=== PATIENT | female | born 1930 | race Caucasian/White ===

== ENCOUNTER 2017-07-06 10:32 | Emergency (ER) | payer OTHER, MEDICAID ==
[~2017-07-06] VITALS: Ht 160 cm; Wt 68.0 kg
--- NOTE | ~2017-07-06 | EKG ---
[place] [address] 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 BAE : 1930 Requested By: Robbie Dave Order Number: [id number] MD: Celestino Villar Measurements Intervals [place] Rate: 57 P: 5 AK: 161 QRS: -42 QRSD: 114 T: 104 QT: 467 QTc: 455 Interpretive Statements Sinus rhythm Atrial premature complex Left anterior fascicular block Abnormal R-wave progression, late transition Abnormal T, consider ischemia, anterior leads Compared to ECG 04/08/2016 10:06:11 Sinus bradycardia no longer present Left-axis deviation no longer present T-wave abnormality still present Electronically Signed On 07-06-2017 12:27:06 GROCERY CLERK CHECKING by Celestino Villar [email or web address] <ELECTRONICALLY SIGNED> By: Celestino Villar MD 07/06/17 1227 1049 1049 Celestino Villar MD /EPI
[~2017-07-06 10:32] MED LIST: ANUSOL1 EACH RC; AZITHROMYCIN 2250 MG PO; B12INJ IM; BISACODYL SUPP10 MG RE; DEXILANT60 MG PO; KEFLEX500 MG PO; LACTULOSE20 GM/30 M PO; LEVAQUIN 500 M500 MG PO; LISINOPRIL10 MG PO; MECLIZINE HCL12.5 MG PO; PREDNISONE 5 MG5 M1 PO; TUMS300 MG PO; VALIUM2 MG PO; ZOFRAN4 MG PO; [UNRECOGNIZED DRUG - OTHER]
[2017-07-06 10:57] LABS: ABSOLUTE NEUTROPHILS 4.6 thou/uL (1.4-8.2); BASOPHILS 0.8 % (0.0-2.0); EOSINOPHILS 0.4 % (0.0-3.0); HEMATOCRIT 39.3 % (37.0-47.0); HEMOGLOBIN 13.9 gm/dL (12.0-15.0); LYMPHOCYTES 18.2 % (24.0-44.0); MCH 30.2 pg (26.0-34.0); MCHC 35.3 g/dL (28.0-37.0); MCV 85.5 fL (80.0-100.0); MONOCYTES 7.3 % (1.0-8.0); PLATELET COUNT 198 thou/uL (150-400); POLYS 73.3 % (36.0-66.0); RDW 13.7 % (10.5-14.5); WBC 6.3 thou/uL (4.0-11.0)
[2017-07-06 11:05] LABS: ANION GAP 8 mmol/L (7-16); BUN 26 mg/dL (7-18); CHLORIDE 94 mmol/L (98-107); CO2 25 mmol/L (21-32); CREATININE 1.4 mg/dL (0.6-1.0); GLUCOSE 116 mg/dL (74-106); POTASSIUM 3.3 mmol/L (3.5-5.1); SODIUM 127 mmol/L (136-145)
[2017-07-06 11:14] LABS: SGOT 48 U/L (15-37); SGPT 28 U/L (30-65); TOTAL BILIRUBIN 0.5 mg/dL (<0.1-1.0); TOTAL PROTEIN 6.5 g/dL (6.4-8.2); TROPONIN-I < 0.04 ng/mL (<0.06)
[2017-07-06] MEDS ORDERED: OSELB75 PO (14:01)
[2017-07-06 18:11] VITALS: BP 136/78
== END 2017-07-06 16:30 | disposition home or self-care (01) ==
LOC: ER 10:32
PROVIDERS: Physician Assistant
DX: E86.0 Dehydration (principal); J11.1 Influenza due to unidentified influenza virus with other respiratory manifestations; R10.13 Epigastric pain; R00.1 Bradycardia, unspecified; I12.9 Hypertensive chronic kidney disease with stage 1 through stage 4 chronic kidney disease, or unspecified chronic kidney disease; N18.9 Chronic kidney disease, unspecified; K21.9 Gastro-esophageal reflux disease without esophagitis; Z88.5 Allergy status to narcotic agent; Z88.8 Allergy status to other drugs, medicaments and biological substances; R55 Syncope and collapse

== ENCOUNTER 2017-07-17 15:06 | Inpatient (IN) | payer OTHER, MEDICAID ==
[~2017-07-17] VITALS: Ht 160 cm; Wt 61.2 kg
--- NOTE | ~2017-07-17 | EKG ---
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 : 1930 Requested By: Dileep Gonsalves Order Number: [id number] MD: Kevin Morales Measurements Intervals [place] Rate: 65 P: 9 MO: 157 QRS: -47 QRSD: 102 T: 116 QT: 386 QTc: 402 Interpretive Statements Sinus rhythm Left anterior fascicular block Abnormal R-wave progression, late transition Nonspecific ST and T wave abnormality Compared to ECG 07/06/2017 10:49:28 Atrial premature complex(es) no longer present Electronically Signed On 07-17-2017 16:18:30 BROKE MAN by Kevin Morales [email or web address] <ELECTRONICALLY SIGNED> By: Kevin Morales MD, [facility] 07/17/17 1618 1548 1548 Kevin Morales MD, [facility] /EPI
[2017-07-17 15:06] VITALS: BP 151/49
[~2017-07-17 15:06] MED LIST changes: +OSELB75 PO
[2017-07-17 16:12] LABS: HEMATOCRIT 38.3 % (37.0-47.0); HEMOGLOBIN 13.5 gm/dL (12.0-15.0); MCH 30.2 pg (26.0-34.0); MCHC 35.3 g/dL (28.0-37.0); MCV 85.6 fL (80.0-100.0); RBC 4.47 mil/uL (4.20-5.00); RDW 13.5 % (10.5-14.5); WBC 12.2 thou/uL (4.0-11.0)
[2017-07-17 16:16] LABS: ANION GAP 11 mmol/L (7-16); BUN 19 mg/dL (7-18); CALCIUM 8.9 mg/dL (8.5-10.1); CHLORIDE 91 mmol/L (98-107); CO2 23 mmol/L (21-32); CREATININE 1.3 mg/dL (0.6-1.0); GLUCOSE 192 mg/dL (74-106); POTASSIUM 3.7 mmol/L (3.5-5.1); SODIUM 125 mmol/L (136-145)
[2017-07-17 16:36] LABS: URINE CLARITY SL HAZY; URINE COLOR YELLOW; URINE GLUCOSE-RANDOM* NEGATIVE (Negative); URINE PROTEIN (DIPSTICK) 2+ (Negative); URINE SPECIFIC GRAVITY <= 1.005 (1.005-1.035)
[2017-07-17 16:37] LABS: URINE BILIRUBIN NEGATIVE (Negative); URINE BLOOD 1+ (Negative); URINE KETONES NEGATIVE (Negative); URINE LEUKOCYTES-REFLEX TRACE (Negative); URINE NITRITE-REFLEX POSITIVE (Negative); URINE UROBILINOGEN 0.2 E.U./dl (0.2-1.0)
[2017-07-17 16:40] LABS: BACTERIA-REFLEX >30 Many /HPF (None Seen); CASTS None Seen /LPF (None Seen); CRYSTALS None Seen /LPF (None Seen); SQUAMOUS 0-3 Few /LPF (0-3); URINE RBC 0-2 Rare /HPF (0-2); URINE WBC-REFLEX 0-5 Rare /HPF (0-5)
[2017-07-17 17:02] LABS: TROPONIN-I < 0.04 ng/mL (<0.06)
[2017-07-17 17:03] LABS: ALBUMIN 2.3 g/dL (3.4-5.0); TOTAL BILIRUBIN 0.8 mg/dL (<0.1-1.0); TOTAL PROTEIN 6.8 g/dL (6.4-8.2)
[2017-07-17 17:12] LABS: DIRECT BILIRUBIN 0.1 mg/dL (<0.1-0.3)
[2017-07-17 17:17] VITALS: BP 167/64
[2017-07-17 19:34] VITALS: BP 153/62
[2017-07-17 20:30] VITALS: BP 148/47
[2017-07-17] MEDS ORDERED: NORVASC5 MG PO (20:40)
[2017-07-17] MEDS ORDERED: COZAAR 25 MG TA25 M1 PO (20:41)
[2017-07-18] VITALS: BP 107/55
[2017-07-18] MEDS ORDERED: CALCIUM 500 +1 EAC5 PO (01:01)
[2017-07-18 04:00] VITALS: BP 126/63
[2017-07-18 05:54] LABS: ABSOLUTE NEUTROPHILS 7.1 thou/uL (1.4-8.2); BASOPHILS 0.1 % (0.0-2.0); EOSINOPHILS 0.2 % (0.0-3.0); HEMATOCRIT 36.4 % (37.0-47.0); HEMOGLOBIN 12.9 gm/dL (12.0-15.0); LYMPHOCYTES 13.4 % (24.0-44.0); MCH 30.1 pg (26.0-34.0); MCHC 35.4 g/dL (28.0-37.0); MONOCYTES 6.8 % (1.0-8.0); PLATELET COUNT 302 thou/uL (150-400); POLYS 79.5 % (36.0-66.0); RBC 4.28 mil/uL (4.20-5.00); WBC 8.9 thou/uL (4.0-11.0)
[2017-07-18 06:32] LABS: ALBUMIN 2.2 g/dL (3.4-5.0); CALCIUM 8.1 mg/dL (8.5-10.1); POTASSIUM 3.4 mmol/L (3.5-5.1); TOTAL BILIRUBIN 0.7 mg/dL (<0.1-1.0); TOTAL PROTEIN 6.1 g/dL (6.4-8.2)
[2017-07-18 08:46] VITALS: BP 124/57; BP 134/64
[2017-07-18 08:47] VITALS: BP 134/64; BP 97/51
[2017-07-18 16:57] VITALS: BP 150/57
[2017-07-18 20:00] VITALS: BP 122/44
[2017-07-19 04:00] VITALS: BP 145/54
[2017-07-19 12:18] LABS: ABSOLUTE NEUTROPHILS 8.3 thou/uL (1.4-8.2); BASOPHILS 0.4 % (0.0-2.0); EOSINOPHILS 0.3 % (0.0-3.0); HEMOGLOBIN 12.1 gm/dL (12.0-15.0); LYMPHOCYTES 7.5 % (24.0-44.0); MCHC 34.7 g/dL (28.0-37.0); MCV 86.4 fL (80.0-100.0); MONOCYTES 8.3 % (1.0-8.0); PLATELET COUNT 277 thou/uL (150-400); POLYS 83.5 % (36.0-66.0); RBC 4.04 mil/uL (4.20-5.00); RDW 13.8 % (10.5-14.5); WBC 9.9 thou/uL (4.0-11.0)
[2017-07-19 12:34] LABS: ALBUMIN 1.9 g/dL (3.4-5.0); CALCIUM 7.9 mg/dL (8.5-10.1); CREATININE 1.1 mg/dL (0.6-1.0); POTASSIUM 3.5 mmol/L (3.5-5.1); TOTAL BILIRUBIN 0.3 mg/dL (<0.1-1.0); TOTAL PROTEIN 5.5 g/dL (6.4-8.2)
[2017-07-19 16:45] VITALS: BP 123/44; BP 145/54
[2017-07-19] MEDS ORDERED: CIPRO500 MG PO (16:56)
== END 2017-07-19 19:19 | disposition home or self-care (01) | DRG 871 ==
LOC: ER 15:06 → EROBS 17:08 → 4N 17:08 → ENTRNSPT 07-19 17:45 → 4N 07-19 19:19
PROVIDERS: Emergency Medicine; Hospitalist
DX: A41.9 Sepsis, unspecified organism (principal); E43 Unspecified severe protein-calorie malnutrition; N39.0 Urinary tract infection, site not specified; E87.1 Hypo-osmolality and hyponatremia; K21.9 Gastro-esophageal reflux disease without esophagitis; E86.0 Dehydration; I10 Essential (primary) hypertension; M06.9 Rheumatoid arthritis, unspecified; J11.1 Influenza due to unidentified influenza virus with other respiratory manifestations; Z98.42 Cataract extraction status, left eye; Z98.41 Cataract extraction status, right eye; Z79.899 Other long term (current) drug therapy; Z88.1 Allergy status to other antibiotic agents; Z88.6 Allergy status to analgesic agent; Z28.21 Immunization not carried out because of patient refusal
CPT/HCPCS: 10790

== ENCOUNTER → 2017-08-23 | Outpatient (CLI) | payer OTHER, MEDICAID ==
[~2017-08-23] MED LIST changes: +CALCIUM 500 +1 EAC5 PO; +CIPRO500 MG PO; +COZAAR 25 MG TA25 M1 PO; +NORVASC5 MG PO
== END ==
LOC: RAD 11:18
DX: I51.7 Cardiomegaly (principal); R10.9 Unspecified abdominal pain

== ENCOUNTER 2017-11-05 16:04 | Emergency (ER) | payer OTHER, MEDICAID ==
[~2017-11-05] VITALS: Ht 160 cm; Wt 68.0 kg
[2017-11-05 16:28] LABS: URINE BILIRUBIN NEGATIVE (Negative); URINE BLOOD 2+ (Negative); URINE CLARITY CLEAR; URINE COLOR YELLOW; URINE GLUCOSE-RANDOM* NEGATIVE (Negative); URINE KETONES NEGATIVE (Negative); URINE LEUKOCYTES-REFLEX NEGATIVE (Negative); URINE NITRITE-REFLEX NEGATIVE (Negative); URINE PROTEIN (DIPSTICK) 3+ (Negative)
[2017-11-05 16:37] LABS: CASTS None Seen /LPF (None Seen); CRYSTALS None Seen /LPF (None Seen); SQUAMOUS 4-10 Moderate /LPF (0-3)
[2017-11-05 16:38] LABS: URINE WBC-REFLEX 0-5 Rare /HPF (0-5)
[2017-11-05 16:39] LABS: BACTERIA-REFLEX 1-9 Few /HPF (None Seen); MUCUS 0-3 Light strn/LPF (None Seen); URINE RBC 3-10 Few /HPF (0-2)
[2017-11-05 16:59] LABS: ABSOLUTE NEUTROPHILS 6.3 thou/uL (1.4-8.2); EOSINOPHILS 0.6 % (0.0-3.0); HEMATOCRIT 32.9 % (37.0-47.0); HEMOGLOBIN 11.5 gm/dL (12.0-15.0); MCH 30.8 pg (26.0-34.0); MCHC 34.9 g/dL (28.0-37.0); MCV 88.2 fL (80.0-100.0); MONOCYTES 8.3 % (1.0-8.0); PLATELET COUNT 192 thou/uL (150-400); POLYS 81.1 % (36.0-66.0); RBC 3.74 mil/uL (4.20-5.00); RDW 13.7 % (10.5-14.5); WBC 7.8 thou/uL (4.0-11.0)
[2017-11-05 17:05] LABS: URINE BILIRUBIN NEGATIVE (Negative); URINE BLOOD 3+ (Negative); URINE CLARITY CLEAR; URINE COLOR YELLOW; URINE GLUCOSE-RANDOM* NEGATIVE (Negative); URINE KETONES NEGATIVE (Negative); URINE NITRITE-REFLEX NEGATIVE (Negative); URINE PROTEIN (DIPSTICK) 3+ (Negative)
[2017-11-05 17:07] LABS: URINE LEUKOCYTES-REFLEX TRACE (Negative)
[2017-11-05 17:09] LABS: CALCIUM 8.5 mg/dL (8.5-10.1); CREATININE 1.1 mg/dL (0.6-1.0); POTASSIUM 3.6 mmol/L (3.5-5.1)
[2017-11-05 17:14] LABS: ALBUMIN 2.1 g/dL (3.4-5.0); TOTAL BILIRUBIN 1.1 mg/dL (<0.1-1.0); TOTAL PROTEIN 6.1 g/dL (6.4-8.2)
[2017-11-05 17:15] LABS: BACTERIA-REFLEX 1-9 Few /HPF (None Seen); CASTS None Seen /LPF (None Seen); SQUAMOUS >10 Many /LPF (0-3); URINE RBC 3-10 Few /HPF (0-2); URINE WBC-REFLEX 6-15 Few /HPF (0-5)
[2017-11-05 17:16] LABS: CRYSTALS None Seen /LPF (None Seen); MUCUS 4-6 Moderate strn/LPF (None Seen); WBC CLUMPS Few (None Seen)
[2017-11-05] MEDS ORDERED: BACTRIM DS TAB1 EACH PO (18:32)
[2017-11-05] MEDS ORDERED: PREDNISONE 5 MG5 MG PO (18:41)
== END 2017-11-05 19:15 | disposition home or self-care (01) ==
LOC: ER 16:04
PROVIDERS: Physician Assistant
DX: N39.0 Urinary tract infection, site not specified (principal); R50.9 Fever, unspecified; M19.90 Unspecified osteoarthritis, unspecified site; R53.1 Weakness; K21.9 Gastro-esophageal reflux disease without esophagitis; I10 Essential (primary) hypertension

== ENCOUNTER 2017-11-08 09:34 | Inpatient (IN) | payer OTHER, MEDICAID ==
[~2017-11-08] VITALS: Ht 154.9 cm; Wt 61.2 kg
[~2017-11-08 09:34] MED LIST changes: +BACTRIM DS TAB1 EACH PO; +PREDNISONE 5 MG5 MG PO
[2017-11-08 09:36] VITALS: BP 141/51
[2017-11-08 10:21] LABS: ABSOLUTE NEUTROPHILS 4.2 thou/uL (1.4-8.2); BASOPHILS 1.7 % (0.0-2.0); EOSINOPHILS 0.9 % (0.0-3.0); HEMOGLOBIN 11.6 gm/dL (12.0-15.0); MCH 30.5 pg (26.0-34.0); MCHC 36.3 g/dL (28.0-37.0); MONOCYTES 6.7 % (1.0-8.0); PLATELET COUNT 169 thou/uL (150-400); POLYS 82.7 % (36.0-66.0); RBC 3.81 mil/uL (4.20-5.00); RDW 13.8 % (10.5-14.5)
[2017-11-08 10:50] LABS: URINE BILIRUBIN NEGATIVE (Negative); URINE BLOOD 2+ (Negative); URINE CLARITY CLEAR; URINE COLOR YELLOW; URINE GLUCOSE-RANDOM* NEGATIVE (Negative); URINE KETONES NEGATIVE (Negative); URINE LEUKOCYTES-REFLEX NEGATIVE (Negative); URINE NITRITE-REFLEX NEGATIVE (Negative); URINE PROTEIN (DIPSTICK) 3+ (Negative); URINE SPECIFIC GRAVITY 1.025 (1.005-1.035)
[2017-11-08 10:54] LABS: CALCIUM 8.3 mg/dL (8.5-10.1); CREATININE 1.5 mg/dL (0.6-1.0); POTASSIUM 3.7 mmol/L (3.5-5.1)
[2017-11-08 10:59] LABS: TOTAL BILIRUBIN 0.4 mg/dL (<0.1-1.0); TOTAL PROTEIN 6.2 g/dL (6.4-8.2)
[2017-11-08 11:02] LABS: CRYSTALS None Seen /LPF (None Seen); FINE GRANULAR CASTS 0-3 Few /LPF (None Seen); SQUAMOUS 4-10 Moderate /LPF (0-3)
[2017-11-08 11:03] VITALS: BP 148/42
[2017-11-08 11:04] LABS: URINE RBC 3-10 Few /HPF (0-2); URINE WBC-REFLEX 0-5 Rare /HPF (0-5)
[2017-11-08 11:20] VITALS: BP 148/42
[2017-11-08 11:40] VITALS: BP 148/51
[2017-11-08 12:54] LABS: TSH 2.315 uIU/mL (0.358-3.740)
[2017-11-08 16:33] VITALS: BP 136/53
[2017-11-08 19:53] VITALS: BP 113/34
[2017-11-09 00:08] VITALS: BP 125/52
[2017-11-09 04:24] VITALS: BP 149/49
[2017-11-09 07:08] LABS: ABSOLUTE NEUTROPHILS 2.4 thou/uL (1.4-8.2); BASOPHILS 1.7 % (0.0-2.0); EOSINOPHILS 1.2 % (0.0-3.0); HEMATOCRIT 29.1 % (37.0-47.0); HEMOGLOBIN 10.5 gm/dL (12.0-15.0); LYMPHOCYTES 15.1 % (24.0-44.0); MCH 30.4 pg (26.0-34.0); MCHC 36.2 g/dL (28.0-37.0); MONOCYTES 7.7 % (1.0-8.0); PLATELET COUNT 150 thou/uL (150-400); POLYS 74.3 % (36.0-66.0); RBC 3.46 mil/uL (4.20-5.00); RDW 13.9 % (10.5-14.5); WBC 3.3 thou/uL (4.0-11.0)
[2017-11-09 07:22] LABS: CALCIUM 7.8 mg/dL (8.5-10.1); CREATININE 1.4 mg/dL (0.6-1.0); MAGNESIUM 1.7 mg/dL (1.8-2.4)
[2017-11-09 08:40] VITALS: BP 152/58
[2017-11-09 15:56] VITALS: BP 128/55
[2017-11-09 19:42] VITALS: BP 150/69
[2017-11-10 04:25] VITALS: BP 158/66
[2017-11-10 08:00] VITALS: BP 130/59
[2017-11-10 09:36] LABS: ABSOLUTE NEUTROPHILS 4.1 thou/uL (1.4-8.2); EOSINOPHILS 0.6 % (0.0-3.0); HEMATOCRIT 32.2 % (37.0-47.0); HEMOGLOBIN 11.5 gm/dL (12.0-15.0); LYMPHOCYTES 8.4 % (24.0-44.0); MCH 30.2 pg (26.0-34.0); MCHC 35.6 g/dL (28.0-37.0); MCV 84.8 fL (80.0-100.0); MONOCYTES 6.8 % (1.0-8.0); PLATELET COUNT 163 thou/uL (150-400); POLYS 83.2 % (36.0-66.0); RDW 13.8 % (10.5-14.5); WBC 4.9 thou/uL (4.0-11.0)
[2017-11-10 09:44] LABS: CALCIUM 8.4 mg/dL (8.5-10.1); CREATININE 1.1 mg/dL (0.6-1.0); POTASSIUM 3.7 mmol/L (3.5-5.1); TOTAL BILIRUBIN 0.3 mg/dL (<0.1-1.0)
[2017-11-10] MEDS ORDERED: DOXYCYCLINE HYC50 MG PO (11:53)
[2017-11-10 12:02] VITALS: BP 130/59
== END 2017-11-10 13:36 | disposition home or self-care (01) | DRG 193 ==
LOC: ER 09:34 → EROBS 10:56 → 4W 11:35
PROVIDERS: Emergency Medicine; Nurse Practitioner; Nurse Practitioner Family
DX: J18.9 Pneumonia, unspecified organism (principal); N17.0 Acute kidney failure with tubular necrosis; E87.1 Hypo-osmolality and hyponatremia; N39.0 Urinary tract infection, site not specified; I10 Essential (primary) hypertension; E86.0 Dehydration; K21.9 Gastro-esophageal reflux disease without esophagitis; M06.9 Rheumatoid arthritis, unspecified; Z98.42 Cataract extraction status, left eye; Z98.41 Cataract extraction status, right eye; Z79.899 Other long term (current) drug therapy; Z88.8 Allergy status to other drugs, medicaments and biological substances
CPT/HCPCS: 10045

== ENCOUNTER → 2019-01-07 | Outpatient (CLI) | payer OTHER, MEDICAID ==
[~2019-01-07] MED LIST changes: +DOXYCYCLINE HYC50 MG PO; +LEXAPRO5 MG PO; +RIVASTIGMINE1.5 MG PO
== END ==
LOC: MRI 10:44
DX: G93.89 Other specified disorders of brain (principal); R90.82 White matter disease, unspecified

== ENCOUNTER 2019-01-08 09:51 | Emergency (ER) | payer OTHER, MEDICAID ==
[~2019-01-08] VITALS: Ht 154.9 cm; Wt 56.7 kg
--- NOTE | ~2019-01-08 | EMS ---
[address] [address] EMS Patient Care Report Name: NAHUM BROWN Room #: DEP [facility] Matias#: [id number] Admission: 01/08/19 Attend Phys: Discharge: 01/08/19 Date of : 30 Report #: [id number] THIS REPORT FOR: //name// Report Transmitted: 01/13/2019 11:07 EMS Care Summary [facility] MED-ACT Incident [id number] @ 01/08/2019 09:05 Incident Location [address] [place] [address] Patient NAHUM BROWN Female, 88 Years 1930 Patient Address [address] [place] [address] Patient History Dementia, Patient Allergies Hydrocodone, Patient Medications Losartan, Dexilant, Rivastigmine, Prednisone, Vitamin D, Promethazine, Chief Complaint "She isn't acting right." Disposition Transported No Lights/[place] Reason Psychiatric Problem/Abnormal Behavior/Suicide Attempt Transported To [facility] Narrative History: Family on scene reports the pt has a history of dementia. Family reports the pt is a [place] Gabones[place] speaker who speaks [id number] Latvian. Family reports that this morning, the pt has had increased agitation. Family reports the pt has been banging on windows in the home and refusing to take her [address] [address] EMS Patient Care Report Name: NAHUM BROWN Room #: DEP [facility]#: [id number] Admission: 01/08/19 Attend Phys: Discharge: 01/08/19 Date of : 30 Report #: [id number] morning medications. Family reports the pt has expressed fear that she is being poisoned by her medication. Pt denies any complaints of pain. Pt denies any complaints in presence of EMS. Assessment: Pt was found seated on a sofa in the living room of the home in the presence of her daughter, who acts as biological science technician fish for EMS. Pt is responsive to EMS, but is confused. Pt ABCs intact. See assessment tab for detailed physical exam findings and pertinent negatives. Treatment: Primary. VS. Bg assessment. Pt ambulatory with assistance to EMS stretcher in living room and secured in semi-greenberg's position. Pt moved via stretcher to ambulance. Transport: En route, continue with on-going assessment. Biocom to [facility] ED. Pt would speak pleasantly with EMS in Gabonese during transport. No other changes noted during transport phase. Destination: Pt was brought via stretcher to [facility] ED room 7. Destination was determined by family choice and closest facility. Pt moved via lateral sheet drag to hospital bed. Report provided to attending RN and MD. Pt's daughter and DPOA signed on pt's behalf due to pt's confusion. Care transferred. Initial Vitals @09:31P: 83,R: 16,BP: 138/81,GCS: 14,SpO2: 99,Revised Trauma: 12, @09:36P: 77,R: 16,BP: 99/60,GCS: 14,SpO2: 97,Revised Trauma: 12, @09:16P: 66,R: 16,BP: 127/77,Pain: 0/10,GCS: 14,Glucose: 90,SpO2: 99,Revised Trauma: 12, Assessments @09:15MENTAL:Confused,Person Oriented,Hallucinations,SKIN:HEENT:LUNG SOUNDS:ABDOMEN:PELVIS//GI:EXTREMITIES:PULSE:NEURO: Impression Behavioral/psychiatric episode Procedures @09:14ALS AssessmentResponse: UnchangedSucceeded Timeline 09:04,Call Received 09:04,Psap Call 09:05,Dispatched 09:05,En Route 09:12,On Scene 09:13,At Patient [address] [address] EMS Patient Care Report Name: NAHUM BROWN ARTMOMIKE Room #: DEP Polly#: [id number] Admission: 01/08/19 Attend Phys: Discharge: 01/08/19 Date of : 30 Report #: [id number] 09:14,ALS Assessment,Response: UnchangedSucceeded, 09:16,BP: 127/77 M,PULSE: 66,RR: 16 R,SPO2: 99 Ox,ETCO2: ,B,PAIN: 0,GCS: 14, 09:31,BP: 138/81 M,PULSE: 83,RR: 16 R,SPO2: 99 Ox,ETCO2: ,BG: ,PAIN: ,GCS: 14, 09:34,Depart Scene 09:36,BP: 99/60 M,PULSE: 77,RR: 16 R,SPO2: 97 Ox,ETCO2: ,BG: ,PAIN: ,GCS: 14, 09:47,At Destination 10:05,Call Closed Disclaimer v1.1 Copyright 2019 [employer] This EMS Care Summary contains data elements from the applicable legal record (which may be displayed differently). It is designed to provide pertinent information for the following purposes: continuity of care, clinical quality, and state data reporting. The complete legal record is available to ED staff and administrators of the receiving hospital in [employer]'s Patient Tracker. All data is provided "as is."
[~2019-01-08 09:51] MED LIST changes: -LEXAPRO5 MG PO; -RIVASTIGMINE1.5 MG PO
[2019-01-08] MEDS ORDERED: LEXAPRO5 MG PO (09:55)
[2019-01-08] MEDS ORDERED: RIVASTIGMINE1.5 MG PO (09:57)
[2019-01-08] MEDS ORDERED: PREDNISONE 5 MG5 M1 PO (09:58)
[2019-01-08 10:24] LABS: ABSOLUTE NEUTROPHILS 7.1 thou/uL (1.4-8.2); BASOPHILS 1.2 % (0.0-2.0); EOSINOPHILS 1.2 % (0.0-3.0); HEMATOCRIT 31.4 % (37.0-47.0); LYMPHOCYTES 16.7 % (24.0-44.0); MCH 30.1 pg (26.0-34.0); MCHC 35.2 g/dL (28.0-37.0); MCV 85.5 fL (80.0-100.0); MONOCYTES 5.8 % (1.0-8.0); PLATELET COUNT 264 thou/uL (150-400); POLYS 75.1 % (36.0-66.0); RBC 3.67 mil/uL (4.20-5.00); RDW 14.7 % (10.5-14.5); WBC 9.5 thou/uL (4.0-11.0)
[2019-01-08 10:30] LABS: CREATININE 1.5 mg/dL (0.6-1.0); POTASSIUM 3.2 mmol/L (3.5-5.1)
[2019-01-08 10:37] LABS: ALBUMIN 2.7 g/dL (3.4-5.0); TOTAL BILIRUBIN 0.8 mg/dL (<0.1-1.0); TOTAL PROTEIN 6.2 g/dL (6.4-8.2)
[2019-01-08 10:39] LABS: URINE BILIRUBIN NEGATIVE (Negative); URINE BLOOD 1+ (Negative); URINE CLARITY CLEAR; URINE COLOR YELLOW; URINE GLUCOSE-RANDOM* NEGATIVE (Negative); URINE KETONES NEGATIVE (Negative); URINE LEUKOCYTES-REFLEX NEGATIVE (Negative); URINE NITRITE-REFLEX NEGATIVE (Negative); URINE PROTEIN (DIPSTICK) 2+ (Negative); URINE UROBILINOGEN 0.2 E.U./dl (0.2-1.0)
[2019-01-08 10:41] LABS: AMP/METHAMP Negative (Negative); BARBITURATES Negative (Negative); BENZODIAZEPINES Negative (Negative); COCAINE Negative (Negative); METHADONE Negative (Negative); OPIATES Negative (Negative); PCP Negative (Negative)
[2019-01-08 11:24] LABS: BACTERIA-REFLEX 1-9 Few /HPF (None Seen); CASTS None Seen /LPF (None Seen); CRYSTALS None Seen /LPF (None Seen); SQUAMOUS 0-3 Few /LPF (0-3); URINE RBC 0-2 Rare /HPF (0-2); URINE WBC-REFLEX 0-5 Rare /HPF (0-5)
[2019-01-08 11:36] VITALS: BP 150/76
--- NOTE | 2019-01-08 16:12 | EKG ---
[place] [address] [facility] [place] [address] ELECTROCARDIOGRAM REPORT Name: NAHUM BROWN ARTGEN Room #: DEP [facility]#: [id number] Admission: 01/08/19 Attend Phys: Discharge: 01/08/19 Date of : 30 Report #: [id number] THIS REPORT FOR: //name// 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 : 1930 Requested By: Demian Whitaker Order Number: [id number] MD: Kevin Morales Measurements Intervals [place] Rate: 71 P: -5 CA: 139 QRS: -28 QRSD: 103 T: 29 QT: 405 QTc: 441 Interpretive Statements Sinus rhythm Atrial premature complex Borderline left axis deviation Abnormal R-wave progression, late transition Compared to ECG 07/17/2017 15:48:52 Atrial premature complex(es) now present Electronically Signed On 01-08-2019 16:11:59 CDT by Kevin Morales [email or web address] <ELECTRONICALLY SIGNED> By: Kevin Morales MD, FACC 01/08/19 1611 1001 1001 Kevin Morales MD, [facility] /EPI
== END 2019-01-08 11:43 | disposition home or self-care (01) ==
LOC: ER 09:51
PROVIDERS: Emergency Medicine
DX: F03.90 Unspecified dementia, unspecified severity, without behavioral disturbance, psychotic disturbance, mood disturbance, and anxiety (principal); I10 Essential (primary) hypertension; K21.9 Gastro-esophageal reflux disease without esophagitis; M06.9 Rheumatoid arthritis, unspecified; Z88.5 Allergy status to narcotic agent; Z88.8 Allergy status to other drugs, medicaments and biological substances; Z79.899 Other long term (current) drug therapy

== ENCOUNTER 2019-01-08 17:57 | Inpatient (IN) | payer OTHER, MEDICAID ==
[~2019-01-08] VITALS: Ht 154.9 cm; Wt 56.3 kg
--- NOTE | ~2019-01-08 | EMS ---
[address] [address] EMS Patient Care Report Name: NAHUM BROWNVJENNIFER Room #: REG [facility] Matias#: [id number] Admission: 01/08/19 Attend Phys: Discharge: Date of : 30 Report #: [id number] THIS REPORT FOR: //name// Report Transmitted: 01/08/2019 17:16 EMS Care Summary [facility] MED-ACT Incident [id number] @ 01/08/2019 17:05 Incident Location [address] [place] [address] Patient NAHUM BROWN Female, 88 Years 1930 Patient Address [address] [place] [address] Patient History Dementia,Alzheimer's, Patient Allergies Hydrocodone,Other drug allergy, Patient Medications Prednisone, Vitamin D, Rivastigmine, Promethazine, Dexilant, Losartan, Chief Complaint complications from alzheimers Disposition Transported No Lights/[place] Reason Sick Person Transported To [facility] Narrative Pt was found sitting upright on the couch. Pt was awake and appeared to be in no obvious distress. Pt daughter was with pt as well as [place] [facility]. PD states they got a call from the daughter for the pt who has alzheimers and [address] [address] EMS Patient Care Report Name: NAHUM BROWN [facility] [id number] Admission: 01/08/19 Attend Phys: Discharge: Date of : 30 Report #: [id number] dementia. They state pt was outside, "stating she was being held against her will." PD states "pt looked a little faint and was trying to vomit so we wanted you to come check her out." Daughter states pt was transported by ambulance earlier today for a similar episode and that normally the pt is very calm. Daughter states pt was released from the ER after she had calmed down but was told the doctor would admit the pt if the daughter (DPOA) wished. Daughter states pt has no physical complaints. There is a language barrier with pt as she only speaks [place] and despite using a chief engineer research (with phone), pt's answers were non relevant to the question asked. Pt is non combative and cooperative. Pt daughter requested pt be transported back to the ER by ambulance. Pt stands and ambulates with minimal assistance, lays on cot in position of comfort and secured via 5 point seatbelt. Pt moved to ambulance. Pt is stable en route and language barrier makes it difficult to assess pt despite using chief engineer research (phone). Pt to room 1, report given to RN and pt moved to bed via sheet without incident. Initial Vitals @17:15P: 75,R: 16,BP: 126/58,Pain: 0/10,Glucose: 115,SpO2: 100,MT Suspected: false @17:51P: 78,R: 16,BP: 128/78,SpO2: 100, Assessments @17:13MENTAL:Confused,SKIN:HEENT:Head/Face: No Abnormalities,LUNG SOUNDS:ABDOMEN:PELVIS//GI:EXTREMITIES:Left Arm: No Abnormalities,Right Arm: No Abnormalities,Left Leg: No Abnormalities,Right Leg: No Abnormalities,PULSE:NEURO:No Abnormalities, Impression Confusion/Delirium Timeline 17:04,Call Received 17:04,Psap Call 17:05,Dispatched 17:05,En Route 17:12,On Scene 17:13,At Patient 17:15,BP: 126/58 M,PULSE: 75,RR: 16 R,SPO2: 100 Ox,ETCO2: ,B,PAIN: 0,GCS: , [facility] [address] [address] EMS Patient Care Report Name: NAHUM BROWN Room #: REG [facility]#: [id number] Admission: 01/08/19 Attend Phys: Discharge: Date of : 30 Report #: [id number] 17:33,Depart Scene 17:51,BP: 128/78 M,PULSE: 78,RR: 16 R,SPO2: 100 Ox,ETCO2: ,BG: ,PAIN: ,GCS: , 17:52,At Destination 18:03,Call Closed Disclaimer v1.1 Copyright 2019 [employer] This EMS Care Summary contains data elements from the applicable legal record (which may be displayed differently). It is designed to provide pertinent information for the following purposes: continuity of care, clinical quality, and state data reporting. The complete legal record is available to ED staff and administrators of the receiving hospital in ES's Patient Tracker. All data is provided "as is."
[~2019-01-08 17:57] MED LIST changes: +LEXAPRO5 MG PO; +RIVASTIGMINE1.5 MG PO
[2019-01-08 17:58] VITALS: BP 144/71
[2019-01-08 20:37] VITALS: BP 179/80
--- NOTE | 2019-01-08 22:07 | NUR ---
PATIENT ADMITTED TO 527B ON 5S AND ARRIVED FROM [facility] AT 2100 ON CART. PATIENT'S DAUGHTER/GREG SHI ACCOMPANIED PATIENT. CONSENTS SIGNED BY DPANDREAS. PATIENT ALERT ORIENTED X1. PATIENT SPEAKS ANDORRAN AND VERY LITTLE NEPALI. SHE WAS SMILING AND SAID THANK YOU MANY TIMES. SHE IS CALM AND SHOWS NO SIGNS OF AGRESSION. DAUGHTER SIGNED MOST PAPERWORK AND WAS GIVEN THE WELCOME PACKET. VSS TAKEN BY STUDIO GRIP. BP IS UP AND WILL RECHECK IT MANUALLY. DPOA PAPERWORK PUT IN CHART. PATIENT HAS HX OF HTN AND RHEUMATOID ARTHRITIS AND DEMENTIA. SHE HAS LIVED WITH DAUGHTER FOR MANY YEARS. DAUGHTER SAYS PATIENT JUST BECAME LUCID AND RECOGNIZED HER DAUGHTER SHE CAME ON THE UNIT [employer]. STATES PATIENT HAS NOT RECOGNIZED HER FOR A COUPLE OF YEARS. GREG LIMON, LEFT A LARGE NOTEBOOK OF PATIENT'S HISTORY FOR THE DOCTOR TO GO THRU. SHE WOULD NOT TAKE IT HOME BUT SHE DID TAKE ALL OTHER CLOTHING AND BELONGINGS HOME. PATIENT HAS HER OWN PAIR OF WHITE BRIEF PANTIES ON WITH HOSPITAL GOWN. PATIENT IS CONTINENT. SHE USES A WALKER AT HOME. SHE HAS NOT HAD ANY FALLS IN LAST YEAR OR TWO. PATIENT HAS A HEALING SKIN TEAR ON LEFT HAND. SHE HAS RED/PURPLE SPOTS/ BRUISING UP AND DOWN ARMS, DELICATE SKIN. BANDAID ON FINGER ON LEFT HAND FROM GLUCOSE ACCUCHECK IN ER. PATIENT DENIES PAIN. LBM IS UNKNOWN BY DAUGHTER OR PATIENT. ABDOMEN IS SOFT AND NONTENDER TO PALPITATION. POSITIVE BS X 4 QUADS. PATIENT HAS NOT EATEN MUCH TODAY THE DAUGHTER SAID. PATIENT STATES SHE IS NOT HUNGRY AND DOES NOT WANT US TO ORDER HER ANY FOOD FOR NOW. SHE DID ASK IF SHE CAN HAVE SOME MILK, WHICH WAS PROVIDED FOR HER. PATIENT LIKES ROOM TEMP WATER AND NO ICE. PATIENT COMFORTABLE IN BED. BED ALARM EXPLAINED TO PATIENT. BED IN LOW POSITION. DAUGHTER GIVEN PATIENT CODE AND NUMBER TO CALL. EDER WESTBROOK NP CALLED AND MED ORDERS RECEIVED. Higinio CASE NP CALLED TO HAVE HOSPITALIST GROUP SEE PATIENT IN MORNING. CONTINUING TO MONITOR. DAUGHTER INTERPRETED NEEDED. A
[2019-01-09 00:46] VITALS: BP 197/84
--- NOTE | 2019-01-09 00:52 | NUR ---
PATIENT PLEASANTLY CONFUSED. WALKER PROVIDED FOR PATIENT WHO WAS WALKED TO THE BATHROOM WITH ASSIST. PATIENT DENIES PAIN. NO EDEMA NOTED. HEART SOUNDS WNL, LUNGS CTA BILATERALLY. PATIENT DOES NOT WANT FEEL SHE NEEDS A SLEEP MED TONIGHT. SHE IS CONCERNED ABOUT HER WATCH. I TOLD HER THAT HER DAUGHTER TOOK ALL HER BELONGINGS HOME. PATIENT FORGETS AND LOOKS FOR WATCH AGAIN. PATIENT DOES NOT WEAR GLASSES. SHE HAS HER OWN TEETH. NO DENTURES. NO HEARING AIDS. PATIENT DOES SEEM TO UNDERSTAND AND SPEAK MORE MAORI THAN WAS FIRST REPORTED TO THIS NURSE. PATIENT IS CALM AND BACK TO SLEEP AT THIS TIME.
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
--- NOTE | 2019-01-09 04:37 | NUR ---
PATIENT TOSSED AND TURNED IN BED. APPEARS VERY SLEEPY BUT FIGHTING SLEEP. STATES SHE IS HUNGRY. SHE DID NOT HAVE SUPPER. PATIENT UP AT 0400 FOR SNACK. SHE HAD PB ON JAGRUTI CRACKERS, PEACH YOGURT AND DECAF COFFEE. PATIENT C/O BEING COLD. VERY UNSTEADY ON FEET D/T SEDATION. PATIENT VERY CONFUSED. TAKES CLOTHES OFF AND PUTS SOME BACK ON. HAVE TO WALK HER THRU EACH STEP OF AN ACTIVITY SUCH USING THE RESTROOM. CAN'T COMPREHEND HOW TO SIT ON TOILET. PATIENT TOILETED AND BACK TO BED. LAYING IN BED AWAKE. BED ALARM ON AND BED IN LOW POSITION. CONTINUING TO MONITOR.
[2019-01-09 07:36] VITALS: BP 148/100
--- NOTE | 2019-01-09 12:01 | NUR ---
Dr. Caceres met with the family this morning concerning placement in to a memory care setting. Pt would d/c the pt KIMBERLI. SW will follow-up with family to keep the pt at the hospital concerning her healthcare.
[2019-01-09 19:31] VITALS: BP 133/104
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
[2019-01-10 07:29] VITALS: BP 167/73
--- NOTE | 2019-01-10 08:30 | NUR ---
PT WALKING AROUND AND WANTING TO CALL POLICE AND WANTED DAUGHTER HERE NOW. PT UP WITH WALKER IN [place] AND ALSO SITTING IN CHAIR IN THE [place]. PT REFUSING MEDS FOR THIS NURSE. PT STATED I'M FROM [place] I NEED HELP.
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
--- NOTE | 2019-01-10 11:09 | NUR ---
PT DAUGHTER HERE AND PT TOOK HER MEDS FOR HER. DAUGHTER VISITING WITH DR. YU. GIVING DAUGHTER INFORMATION ON [facility].
--- NOTE | 2019-01-10 13:10 | NUR ---
PT DIDN'T WANT TO EAT LUNCH. PT WANTING TO HAVE NURSE CALL POLICE. PT TOUCHING CHEST, DENIES ANY CHEST PAIN. ASKED PT WHY SHE WANTED TO CALL POLICE, PT STATED I DON'T KNOW.
--- NOTE | 2019-01-10 16:52 | NUR ---
ADM 1800 MEDS EARLY DUE TO DAUGHTER HERE AND OFFERED TO ENCOURAGE HER TO TAKE THEM. PATIENT WILL TAKE MEDS FOR DAUGHTER. PT REFUSED THIS AM FOR NURSE.
[2019-01-10 20:03] VITALS: BP 157/66
--- NOTE | 2019-01-10 22:30 | NUR ---
ASSUMED CARE OF THE PT AT 191 PM. ALERT ET ORIENTED X 2. MAKES NEEDS KNOWN. HEART RATE REGULAR, LUNGS CLEAR BILATERALLY, RESP., EVEN, AND UNLABORED. +BS HEARD IN ALL 4 QUADRANTS. REMAINS ON 12 MINUTE CHECKS FOR HIS SAFETY.
--- NOTE | 2019-01-11 04:25 | NUR ---
THE PT APPEARS RESTLESS THIS AM SHIFT. RESP., EVEN, AND UNLABORED. +BS HEARD IN ALL 4 QUADRANTS. ABD SOFT ET NON TENDOR. DENIES PAIN EARLIER IN THE SHIFT.
[2019-01-11 09:12] VITALS: BP 124/70
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
[2019-01-11 19:58] VITALS: BP 172/88
--- NOTE | 2019-01-12 04:40 | NUR ---
ASSUMED CARE OF PATIENT AT 1915 APPROXIMATELY, SHE IS DIFFICULT DO DISCUSS WITH R/T PATIENT STATES 'I SPEAK SOUTH AFRICAN I DONT KNOW WHAT YOU WANT TO TEELYOU? THIS NURSE BELIEVES PATIENT MAY BE DECEPTIVE WITH STAFF. WILL CONTINUE TO MONITOR AND REAS, '
--- NOTE | 2019-01-12 16:42 | NUR ---
PATIENT ALERT AND ORIENTED TO SELF AND LOCATION PER TRANSPORTATION DRIVER. PATIENT REFUSING MEDES THIS AM, STATING SHE THOUGHT NURSE WAS POISINING HER PER DAUGHTER. WHEN DAUGHTER ARRIVED DURING VISITING HOURS, PATIENT TOOK MEDICATIONS AND PATIENT INDICATED SHE WOULD TAKE MEDS FROM NURSE IN THE FUTURE. PATIENT DOES NOT LIKE TO TAKE MEDS WITH ICE WATER. PLEASE GIVE MEDS WITH NO ICE. PATIENT TAKES ONE MED AT A TIME AND NEEDS LARGER MEDS BROKEN OR CRUSHED. HOME MEDICATION IS IN [place]. PATIENT IS COOPERTIVE WITH POC AND GROUPS. DAUGHTER IS JESS AND INDICATED TO CALL IF QUESTIONS OR CONCERNS AT [phone].
[2019-01-12 19:10] VITALS: BP 148/74
--- NOTE | 2019-01-12 19:35 | NUR ---
ASSUMED CARE OF THE PT AT 191 PM. THE PT WAS LYING IN BED WHEN THIS TALENT PARTNER CAME ON DUTY. ALERT ET ORIENTED X 3. MAKES NEEDS KNOWN. THE PT DOES NOT SPEAK VERY MUCH SOUTH AFRICAN. HEART RATE REGULAR, LUNGS CLEAR BILATERALLY, RESP., EVEN, AND UNLABORED. +BS HEARD IN ALL 4 QUADRANTS. REMAINS ON 12 MINUTE CHECKS FOR HER SAFETY.
--- NOTE | 2019-01-13 01:45 | NUR ---
THE PT TOOK HER HS MEDICATIONS WITHOUT ANY DIFFICULTY. DENIED PAIN EARLIER IN THE SHIFT. REMAINS ON 12 MINUTE CHECKS FOR HER SAFETY.
[2019-01-13 09:40] VITALS: BP 142/65
--- NOTE | 2019-01-13 12:03 | NUR ---
PATIENT HAS BEEN UP AND OUT ON THE UNIT, AMBULATES WITH ASSIST OF ROLLER WALKER, GAIT UNSTEADY. PATIENT IS EATING MEALS AND DRINKING FLUID WELL. PATIENT TOOK ALL HER MORNING MEDICATIOIN WHOLE WITHOUT DIFFICULTY. PATIENT SPEAKING THROUGH HER DAUGHTER DENIES SUICIDAL AND HOMOCIDAL IDEATION. PATIENT'S GOAL TODAY IS TO GO HOME. PATIENT DENIES HAVING PHYSICAL PAIN, NO AGITATION OR AGGRESSIVE BEHAVIOR NOTED AT THIS TIME, WILL MONITOR FOR SAFETY.
[2019-01-13 19:39] VITALS: BP 184/76
--- NOTE | 2019-01-13 19:45 | NUR ---
RECEIVED REPORT FROM OFFGOING DAY NURSE. ASSUMED CARE @ 19:15, IN BED AWAKENS TO VOICE AND COOPERATED WITH ASSESSMENT HRRR, LUNGS CTA AND BOWEL SOUNDS N X 4 Q. WILL CONTINUE TO MONITOR FOR PATIENT SAFETY.
--- NOTE | 2019-01-13 22:10 | NUR ---
PT TOILETED BEFORE BED, TOOK HS MEDS WITH PUDDING, CAPSULES WERE OPENED AND PUT IN PUDDING DUE TO DIFFICULTY SWOLLOWING THE FIRST CAPSULE. COMMUNICATION DIFFICULT DUE TO THE LANGUAGE BARRIER, HOWEVER PT COMMUNICATED THAT SHE HAS SEWN HER GOWN. WE BOTH AGREED THAT IT WAS BEAUTIFUL AND SOFT. SHE SPEAKS SOME [place], AND WAS COOPERATIVE TO CARE FOR. WILL MONITOR Q 12 FOR PATIENT SAFETY.
[2019-01-13 22:48] VITALS: BP 184/76
--- NOTE | 2019-01-14 05:51 | NUR ---
SLEPT TOTAL OF 10.2 HOURS OVERNIGHT.
[2019-01-14 08:00] VITALS: BP 146/76
[2019-01-14 11:42] VITALS: BP 185/81
--- NOTE | 2019-01-14 16:04 | NUR ---
assumed pt care report received from nurse. pt is aox3 speaks palauan and roughly speaks equatorial guinean. on ra. up with walker. takes her pills with apple sauce. participate in groups quietly. does not display any violent behavior. assisted with toileting. will continue to monitor pt.
[2019-01-14 19:13] VITALS: BP 184/76
--- NOTE | 2019-01-15 01:44 | NUR ---
ASSUMED CARE @ 19:15. VS 140/76 81 15 97.1 100% @ 20:30 VS 184/76 18 97.9 96% HYDRALOAZINE 10 MG PROVIDE @ 23:45. @ 1:20 VS 199/86 93. CALLED ARIS JAMES NP AND SHE SAID SHE WOULD PLACE AN ORDER FOR B/P MEDS. WILL FOLLOW UP.
[2019-01-15 05:21] VITALS: BP 132/49
[2019-01-15 09:34] VITALS: BP 142/64
[2019-01-15] MEDS ORDERED: CATAPRES-TTS 20.2 MG TRANSDERM (11:12)
--- NOTE | 2019-01-15 11:12 | NUR ---
Met with pts daughter about post discharge living plans. Daughter is taking pt home, but knows that eventually she will need to find memory care. Gave daughter the information on [facility] and left a message for them to call me. Uncertain if they accept Medicaid, as that's what the patient will have.
[2019-01-15] MEDS ORDERED: HALOPERIDOL 1 MG1 MG PO (11:13)
[2019-01-15] MEDS ORDERED: ZYPREXA 5 MG TAB5 M1 PO (11:18)
[2019-01-15 11:21] VITALS: BP 142/64
--- NOTE | 2019-01-15 13:21 | NUR ---
DISCHARGE INSTRUCTIONS REVIEWED WITH PATIENT AND DUAGHTER-DAUGHTER STATES UNDERSTANDING AND DENIES QUESTIONS/CONCERNS. INFORMED OF NEW RX FOR BP PATCH TO CHANGE WEEKLY-ADVICES TO MONITOR FOR S/S OF HYPO/HYPERTENSION AND FOLLOW UP WITH PCP. PT IS ALERT,COOPERATIVE AT TIME OF DC. DENIES SI/SH/HI-NO ACUTE ANXIETY/PSYCHOSIS NOTED OR REPORTED. DC WITH DAUGHTER VIA WC AT APPROX. 1300
--- NOTE | 2019-01-18 11:11 | D ---
[facility] [address] DISCHARGE SUMMARY Name: NAHUM BROWNNYRASJENNIFER Room #: 527B-B [facility] IN M.R.#: [id number] Admission: 01/08/19 Attend Phys: Gary Caceres DO Discharge: 01/15/19 Date of : 30 Report #: [id number] THIS REPORT FOR: //name// CC: Gary Caceres Spe[employer] Box DATE OF SERVICE: 01/15/2019 ATTENDING PHYSICIAN: Gary Caceres DO. EMPLOYMENT LAW ATTORNEY: Dr. Lia Toure and Dr. Josette Sanchez. DISCHARGE DIAGNOSES: 1. Major neurocognitive disorder, likely due to Alzheimer's disease with behavioral disturbance, improved. 2. Unspecified psychosis, resolved. Medical comorbidities are as follows: Hypertension well controlled; rheumatoid arthritis, on prednisone; constipation, well controlled; deep vein thrombosis; and gastrointestinal prophylaxis. DISCHARGE PLAN: She is discharging back to her home where she lives with her and her daughter lives close by. Regarding psychiatric followup, the patient has requested that her PCP manage things as well as Dr. Ward whom the patient is seeing for management of cognitive symptoms of dementia. She is on rivastigmine 3 mg twice a day. DISCHARGE MEDICATIONS: Clonidine patch 0.2 mg transdermal q. 7 days; Haldol 2 mg p.o. at bedtime, continue for 14 days; olanzapine 2.5 mg p.o. q. 4 p.r.n. for agitation, given about a supply #30. Continue Dexilant 60 mg p.o. daily for GERD. Continue prednisone 5 mg in the a.m. and 4 mg in the evening for anti-inflammatory treatment of rheumatoid. Calcium carbonate with vitamin D3 one tab p.o. b.i.d. She is taking Celexa 5 mg p.o. daily. This can be continued either to 5 or 10 mg dose. She needs to be consistent on rivastigmine tartrate 3 mg p.o. b.i.d. Medication stopped this admission were amlodipine and losartan. LABORATORY DATA: Pertinent laboratories from this admission, hematology, H and H 11.0 and 31.4, white count 9.5, platelet count 264. Interestingly, ESR last done in 10/2017 was 57. Chemistries this admission; sodium 136, potassium 3.2, chloride 101, bicarbonate 24, BUN 24, creatinine 1.5. Transaminases were normal. Troponin was less than 0.04. Albumin was 2.7, which is low. Vitamin D was slightly low at 24 in 10/2018. REASON FOR ADMISSION: As follows: Brought by the daughter regarding paranoia. The patient had been doing some bizarre things, banging her head on the windows [facility] [address] [place] [address] DISCHARGE SUMMARY Name: NAHUM BROWN JUAN FRANCISCO Room #: 527B-B [facility] IN M.R.#: [id number] Admission: 01/08/19 Attend Phys: Gary Caceres, Discharge: 01/15/19 Date of : 30 Report #: [id number] at home in an attempt to escape, believed the daughter was poisoning her. HOSPITAL COURSE: The patient was admitted to Geriatric Psychiatry Unit. The patient speaks Liberian, so communication was a barrier, we required the [employer]al [employer] recruitment manager. It took me a little longer than typical to realize how much dementia the patient has at present. She can still recognize her daughter and speak Liberian, but she has quite a blunted affect and is difficult to get information of the patient. Temperature 36.7, pulse 54, respirations 16, BP 142/64. Last pulse was 65, it was at 05:20 this morning. MENTAL STATUS EXAMINATION: This is a well-developed, fairly nourished female, appearing stated age, unwillingness to speak here. Attention and concentration limited. Speech: Had a family meeting today with some questioning, but still pretty quiet even with her daughter present. mood unspecified, affect constricted, congruent, flat at times Denied SI or HI. Denied hopelessness, helplessness. Memory not formally tested. Insight is limited. Judgment fair to limited. Fund of knowledge, no greater than average at this point though previously likely superior. PROGNOSIS: For this patient is guarded given her advanced age, having a major neurocognitive disorder. <ELECTRONICALLY SIGNED> By: Gary Caceres DO 01/18/19 [id number] Gary Caceres DO /nt
== END 2019-01-15 12:30 | disposition home or self-care (01) | DRG 57 ==
LOC: ER 17:57 → SBH 21:04
PROVIDERS: ADMIT Psychiatry & Neurology Psychiatry
DX: G30.9 Alzheimer's disease, unspecified (principal); F02.81 Dementia in other diseases classified elsewhere, unspecified severity, with behavioral disturbance; K21.9 Gastro-esophageal reflux disease without esophagitis; I10 Essential (primary) hypertension; M06.9 Rheumatoid arthritis, unspecified; F22 Delusional disorders; F29 Unspecified psychosis not due to a substance or known physiological condition; F32.9 Major depressive disorder, single episode, unspecified; K59.00 Constipation, unspecified; Z98.42 Cataract extraction status, left eye; Z98.41 Cataract extraction status, right eye; Z88.6 Allergy status to analgesic agent; Z88.8 Allergy status to other drugs, medicaments and biological substances; Z79.899 Other long term (current) drug therapy
CPT/HCPCS: 10880